=== PATIENT | male | born 1985 | race Caucasian/White ===

== ENCOUNTER 2019-04-02 04:48 | Emergency (ER) | payer BC, MEDICARE ==
[2019-04-02] MEDS ORDERED: Labetalol 100 MG/20 ML MDV IVPUSH ONE ×2 (05:15→05:40)
[2019-04-02] MEDS ORDERED: Lactated Ringers 1,000 ML IV ONE (05:53)
--- NOTE | 2019-04-02 05:53 | EDM.PDOC ---
ED HPI GENERAL MEDICAL PROBLEM - General Chief Complaint: Cardiovascular Problem Stated Complaint: high blood pressure Time Seen by Provider: 04/02/19 05:00 Source of Information: Reports: Patient, RN Notes Reviewed - History of Present Illness INITIAL COMMENTS - FREE TEXT/NARRATIVE: 33-year-old male comes in with concerns about hypertension. 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 States she was taken off of lisinopril and started on amlodipine. When he checked his blood pressures at home this morning they were running in the 180s over 120s. He is concerned about the level of those readings and appropriately so. No chest pain or difficulty breathing. There's been no leg swelling or any other sign of fluid retention. He states he does feel more fatigued than usual. - Related Data Allergies Allergy/AdvReac Type Severity Reaction Status Date / Time No Known Allergies Allergy Verified 04/02/19 04:58 Home Meds: Home Meds Carvedilol 12.5 mg PO BID 04/02/19 [History] Mycophenolate Sodium [Mycophenolic Acid] 180 mg PO BID 04/02/19 [History] Mycophenolate Sodium [Mycophenolic Acid] 360 mg PO BID 04/02/19 [History] Tacrolimus [Prograf] 2 mg PO BID 04/02/19 [History] amLODIPine [Norvasc] 10 mg PO DAILY 04/02/19 [History] predniSONE [Prednisone] 5 mg PO DAILY 04/02/19 [History] Past Medical History Cardiovascular History: Reports: Hypertension, SOB on Exertion Respiratory History: Reports: Sleep Apnea Genitourinary History: Reports: Acute Renal Failure, Dialysis, Other (See Below) Other Genitourinary History: IGA nephropathy,( [place]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 2013 before kidney transplant Musculoskeletal History: Reports: Other (See Below) Other Musculoskeletal History: thumb fx Neurological History: Reports: Brain Injury, Head Trauma, Other (See Below) Other Neuro History: from accident Immunologic History: Reports: Immunosuppression, Solid Organ Transplant - Past Surgical History HEENT Surgical History: Reports: Naso-Sinus Surgery, Tonsillectomy Musculoskeletal Surgical History: Reports: ORIF, Other (See Below) Other Musculoskeletal Surgeries/Procedures:: knee surgery Social & Family History - Tobacco Use Smoking Status *Q: Former Smoker Used Tobacco, but Quit: Yes Month/Year Tobacco Last Used: 3 years - Caffeine Use Caffeine Use: Reports: None - Recreational Drug Use Recreational Drug Use: Yes Drug Use in Last 12 Months: Yes Recreational Drug Type: Reports: Marijuana/Hashish Recreational Drug Use Frequency: Binges ED ROS GENERAL - Review of Systems Review Of Systems: See Below Constitutional: Denies: Fever, Chills HEENT: Denies: Throat Pain Respiratory: Denies: Shortness of Breath Cardiovascular: Denies: Chest Pain Endocrine: Reports: Fatigue GI/Abdominal: Denies: Abdominal Pain, Nausea, Vomiting Musculoskeletal: Denies: Back Pain Skin: Reports: No Symptoms Neurological: Reports: No Symptoms ED EXAM, GENERAL - Physical Exam Exam: See Below General Appearance: Alert, No Apparent Distress Throat/Mouth: Normal Inspection Head: Atraumatic Neck: Supple Respiratory/Chest: No Respiratory Distress, Lungs Clear, Normal Breath Sounds Cardiovascular: Regular Rate, Rhythm GI/Abdominal: Soft, Non-Tender Back Exam: No: CVA Tenderness (L), CVA Tenderness (R) Extremities: Normal Inspection. No: Pedal Edema, Leg Pain Neurological: Alert, Oriented, No Motor/Sensory Deficits Skin Exam: Warm, Dry, Normal Color Course - Vital Signs Last Recorded V/S: Last Vital Signs Temp 97.9 F 04/02/19 04:53 Pulse 70 04/02/19 04:53 Resp 16 04/02/19 04:53 BP 182/126 H 04/02/19 04:53 Pulse Ox 96 04/02/19 04:53 - Orders/Labs/Meds Labs: Laboratory Tests 04/02/19 04/02/19 Range/Units 04:55 04:55 WBC 8.10 (4.23-9.07) K/mm3 RBC 3.49 L (4.63-6.08) M/mm3 Hgb 10.7 L D (13.7-17.5) gm/L Hct 32.2 L (40.1-51.0) % MCV 92.3 H (79.0-92.2) fl MCH 30.7 (25.7-32.2) pg MCHC 33.2 (32.2-35.5) g/dl RDW Std Deviation 40.8 (35.1-43.9) fL Plt Count 288 (163-337) K/mm3 MPV 11.0 (9.4-12.3) fl Neut % (Auto) 58.9 (34.0-67.9) % Lymph % (Auto) 25.6 (21.8-53.1) % [place] % (Auto) 10.1 (5.3-12.2) % Eos % (Auto) 4.7 (0.8-7.0) Baso % (Auto) 0.6 (0.1-1.2) % Neut # (Auto) 4.77 (1.78-5.38) K/mm3 Lymph # (Auto) 2.07 (1.32-3.57) K/mm3 [place] # (Auto) 0.82 (0.30-0.82) K/mm3 Eos # (Auto) 0.38 (0.04-0.54) K/mm3 Baso # (Auto) 0.05 (0.01-0.08) K/mm3 Sodium 140 (136-145) mEq/L Potassium 4.3 (3.5-5.1) mEq/L Chloride 105 (98-107) mEq/L Carbon Dioxide 21 (21-32) mEq/L Anion Gap 18.3 H (5-15) BUN 35 H (7-18) mg/dL Creatinine 2.7 H (0.7-1.3) mg/dL Est Cr Clr Drug Dosing 32.89 mL/min Estimated GFR (MDRD) 28 (>60) mL/min BUN/Creatinine Ratio 13.0 L (14-18) Glucose 99 (74-106) mg/dL Calcium 8.8 (8.5-10.1) mg/dL Total Bilirubin 0.2 (0.2-1.0) mg/dL AST 12 L (15-37) U/L ALT 47 (16-63) U/L Alkaline Phosphatase 95 (46-116) U/L Total Protein 7.2 (6.4-8.2) g/dl Albumin 3.4 (3.4-5.0) g/dl Globulin 3.8 gm/dL Albumin/Globulin Ratio 0.9 L (1-2) Meds: Medications Discontinued Medications Generic Name Dose Route Start Last Admin Trade Name Freq PRN Reason Stop Dose Admin Lactated Ringer's 1,000 mls @ 999 mls/hr 04/02/19 05:53 04/02/19 06:00 Ringers, Lactated IV 04/02/19 06:53 999 mls/hr .BOLUS ONE Administration Labetalol HCl 20 mg 04/02/19 05:15 04/02/19 05:19 Normodyne IVPUSH 04/02/19 05:16 20 mg ONETIME ONE Administration Protocol Labetalol HCl 20 mg 04/02/19 05:40 04/02/19 05:44 Normodyne IVPUSH 04/02/19 05:41 20 mg ONETIME ONE Administration Protocol Departure - Departure Time of Disposition: 07:00 Disposition: Home, Self-Care 01 Condition: Fair Clinical Impression: Renal insufficiency Hypertension Qualifiers: Hypertension type: unspecified Qualified Code(s): I10 - Essential (primary) hypertension Instructions: Hypertension, [id number] Referrals: PCP,Not In Area [Primary Care Provider] - Forms: ED Department Discharge Additional Instructions: Check your blood pressure a couple of times a day as best you can and keep a record of that for your winch truck operator, follow-up with your winch truck operator next week , call for appointment. For now continue current medications as prescribed.
== END 2019-04-02 07:01 | disposition home or self-care (01) ==
LOC: JD.ED 04:48
DX: I10 Essential (primary) hypertension (principal); N28.9 Disorder of kidney and ureter, unspecified; Z87.891 Personal history of nicotine dependence; Z79.899 Other long term (current) drug therapy
CPT/HCPCS: 36415; 80053; 85025; 96361; 96374; 99283; J3490; J7120